=== PATIENT | male | born 1995 | race Two or more races ===

== ENCOUNTER 2016-11-06 09:24 | Emergency (ER) | payer BC ==
--- NOTE | 2016-11-06 09:46 | UCPHY ---
H & P Patient Type: New Chief Complaint Nursing Narrative: multiple hits to head/neck last night playing hockey. had MENDES/vomiting all night with tingling in fingers. pt thought it was a migraine since he has had those before; however, this one is lasting longer. Also with L chest/rib pain with trouble taking deep breath. HPI/ROS: CHIEF COMPLAINT: Headache, vomiting, chest pain. HISTORY OF PRESENT ILLNESS: The patient is a 21-year-old male with a history of migraines and 2 previous concussions who presents with vomiting and frontotemporal headache since last night after playing in a hockey game. He does report being hit multiple times in the head. He initially thought his symptoms were a normal migraine, but he does not usually vomit with them and is usually able to sleep off the pain. He admits associated photophobia with the headache, which is common for him with his migraines. He is also complaining of pleuritic chest wall pain that is causing him difficulty breathing. He thinks that this is related to a collision with another player services representative last night. He also reports soreness of his neck muscles on both sides. He denies recent sickness, fever, abdominal pain, diarrhea, or other complaints. REVIEW OF SYSTEMS: A ten point review of systems was performed and is negative with the exception of the items mentioned in the HPI. Source: Patient Exam Limitations: No limitations - Medical/Surgical History Other PMH: 1. concussions (sports-related). 2. ADHD. 3. Migraines. 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 Nonsmoker. Social alcohol use. - Physical Exam Exam: General Appearance: Alert. Vital signs reviewed. Blood pressure 138/90. Head: Normocephalic atraumatic. Eyes: Pupils equal and round, no conjunctival injection, no discharge. Anicteric. ENT, Mouth: Mucous membranes are moist, no oropharyngeal erythema or edema. Superficial laceration to oral mucosa of left lower lip. Neck: No lymphadenopathy, supple. Paraspinous cervical muscle tenderness. No midline vertebral tenderness. Respiratory: Lungs are clear to auscultation; no wheezes, rales, or rhonchi. Cardiovascular: Bradycardic. Regular rhythm; no murmur, rub, or gallop. Thoracic: Left-sided rib tenderness. No crepitus. Gastrointestinal: Abdomen is soft and nontender, no masses or organomegaly, bowel sounds normal. Skin: Warm and dry, no rashes on exposed skin, normal color. Back: Nontender to palpation over the thoracolumbar spine. No CVAT. Extremities: No lower extremity edema, no calf tenderness or swelling. Neurological: Alert and oriented. Moving all four extremities easily and equally. Cranial nerves II through XII are examined and are intact (visual acuity not tested). Strength is 5 over 5 bilaterally with testing of all major motor groups. Sensation is intact to light touch over all 4 extremities. Deep tendon reflexes are 2+ in the biceps and knees bilaterally. Psychiatric: Normal affect. Constitutional: Initial Vital Signs Temperature (C) 36.6 C 11/06/16 09:40 Heart Rate 60 11/06/16 09:40 Respiratory Rate 12 11/06/16 09:40 Blood Pressure 138/90 H 11/06/16 09:40 O2 Sat (%) 97 11/06/16 09:40 O2 Delivery Mode Room Air Allergies/Adverse Reactions: No Known Allergies Allergy (Unverified 11/06/16 09:39) Home Medications: Medication Instructions Recorded LORAZEPAM 11/06/16 Lexapro 11/06/16 Lisdexamfetamine Dimesylate 11/06/16 [VYVANSE] Medical Decision Making - Diagnostics Imaging: Imaging Impressions Chest X-Ray 11/06/16 10:36 Impression: No acute findings in the chest. ED Course/Re-evaluation: 21-year-old male with a history of concussions and migraines presents for frontotemporal headache and vomiting since last night. These symptoms began after he was hit in the head multiple times during a shar hockey game. He tells me that the pain is located in a different spot from his usual migraines and he does not usually vomit when he gets them. He neurological exam is intact but I do think he describes a concerning story. I have recommended head CT to him because of his persistent vomiting and he will speak to his mother about this prior to agreeing to it. 1026: Reassessed patient. He is denying head CT. I discussed with him the risks of not performing this test and he understands these well. He has agreed to a chest x-ray. 1L IV saline administered for hydration along with 4mg IV Zofran for nausea. He was given Toradol 50 mg IV for pain. Patient attached to telemetry monitor due to his bradycardia and risk of QT interval prolongation with antiemetic treatment in conjunction with his other medications. 1145:. Patient is feeling better. He still has headache but it is improved after the administration of 1 L IV normal saline, 4 mg IV Zofran, and 15 mg Toradol IV. 1:00 p.m.: Headache is almost gone. He has mild nausea. Will try p.o.. No evidence of rib fracture or pneumothorax on chest x-ray. 1314: Patient feels well after PO challenge. 650mg PO Tylenol administered for headache. He did not have vomiting here and I do not suspect a serious intracranial injury, such as traumatic intracranial hemorrhage. His neurologic exam remained normal. I think that he has both a concussion and a migraine. He also complains of muscle aches, which he believes are related to the strenuous hockey game yesterday. At discharge he is given a prepack for Flexeril to use for muscle strain. Differential Diagnosis: I considered a differential diagnosis that includes but is not limited to skull fracture, intracranial hemorrhage, concussion,subarachnoid hemorrhage, migraine headache, tension headache and infectious causes such as meningitis, pharyngitis and sinusitis. - Data Points Medications Given: Discontinued Medications Acetaminophen (Tylenol) 650 mg PO EDNOW ONE Stop: 11/06/16 13:15 Last Admin: 11/06/16 13:16 Dose: 650 mg Cyclobenzaprine HCl (Flexeril 10 Mg Prepack#3) 1 btl TAKEHOME EDNOW ONE Stop: 11/06/16 14:34 Last Admin: 11/06/16 14:38 Dose: 1 btl Sodium Chloride (Ns) 1,000 mls @ 0 mls/hr IV ONCE ONE PRN Reason: Wide Open Stop: 11/06/16 10:21 Last Admin: 11/06/16 10:31 Dose: 1,000 mls Ketorolac Tromethamine (Toradol) 15 mg IVP EDNOW ONE Stop: 11/06/16 10:34 Last Admin: 11/06/16 10:43 Dose: 15 mg Ondansetron HCl (Zofran) 4 mg IVP EDNOW ONE Stop: 11/06/16 10:21 Last Admin: 11/06/16 10:31 Dose: 4 mg Departure - Departure Disposition: Home, Routine, Self-Care Clinical Impression: Cervical strain Qualifiers: Encounter type: initial encounter Qualified Code(s): S16.1XXA - Strain of muscle, fascia and tendon at neck level, initial encounter Concussion Qualifiers: Encounter type: initial encounter Loss of consciousness presence/duration: without LOC Qualified Code(s): S06.0X0A - Concussion without loss of consciousness, initial encounter Rib contusion Qualifiers: Encounter type: initial encounter Laterality: left Qualified Code(s): S20.212A - Contusion of left front wall of thorax, initial encounter Migraine Qualifiers: Migraine type: unspecified Status migrainosus presence: without status migrainosus Intractability: not intractable Qualified Code(s): G43.909 - Migraine, unspecified, not intractable, without status migrainosus Condition: Good Instructions: Cyclobenzaprine (By mouth), Cervical Strain (ED), Migraine Headache (ED), Concussion (ED), Contusion in Adults (ED) Additional Instructions: Call Dr. Romano, concussion specialist, tomorrow to set up a follow up appointment. Take Flexeril as instructed for muscle pain. Adult Pain & Fever Control: We recommend Acetaminophen (Tylenol) and Ibuprofen (Motrin,Advil) for pain and fever control. When fever is high or pain severe, both drugs can be used at the same time, but at different intervals. Please note the time differences. Your dose is: Acetaminophen 650mg every 4 to 6 hours Ibuprofen 600mg every 6-8 hours with food. Note: do not take Acetaminophen with Hydrocodone (Vicodin, Lortab) or Oycodone (Percocet). These medications also contain Acetaminophen. No more than 3000mg of Acetaminophen should be taken in 24 hours (for an adult).Take 600mg Ibuprofen every 6-8 hours as needed for pain. Return for any serious worsening of condition. Referrals: Jeanie Romano MD [Medical Doctor] - As per Instructions [facility],. [Clinic] - As per Instructions - PQRS PQRS Measurement: Does not apply. Report Scribed for: Vidhya Griffin Report Scribed by: Estuardo Andre Date of Report: 11/06/16 Time of Report: 09:53 Physician Review and Approval Statement: 11/06/16 09:46 Portions of this note were transcribed by the biomedical specialist. I, Dr. Vidhya Griffin, personally performed the history, physical exam, and medical decision- making; and confirmed the accuracy of the information in the transcribed note.
[2016-11-06] MEDS ORDERED: ONDANSETRON 4 MG/2 ML VIAL IVP ONE (10:20)
[2016-11-06] MEDS ORDERED: NS 1,000 ML IV ONE (10:20)
[2016-11-06] MEDS ORDERED: KETOROLAC 30 MG/1 ML SDV IVP ONE (10:33)
[2016-11-06] MEDS ORDERED: ACETAMINOPHEN 325 MG TAB PO ONE (13:14)
[2016-11-06 13:43] VITALS: RESP 16
[2016-11-06] MEDS ORDERED: CYCLOBENZAPRINE 10MG PREPACK#3 BTL TAKEHOME ONE (14:33)
[2016-11-06 14:42] VITALS: BP 118/75; PULSE 47; TEMP 98.4; O2SAT 98
== END 2016-11-06 14:45 | disposition home or self-care (01) ==
LOC: CED 09:24
DX: S16.1XXA Strain of muscle, fascia and tendon at neck level, initial encounter (principal); S06.0X0A Concussion without loss of consciousness, initial encounter; S20.212A Contusion of left front wall of thorax, initial encounter; G43.909 Migraine, unspecified, not intractable, without status migrainosus; Y93.22 Activity, ice hockey; W50.0XXA Accidental hit or strike by another person, initial encounter
CPT/HCPCS: 71020-PO; 96361-PO; 96374-PO; 96375-PO; 99205-PO; G0463-PO; J1885; J2405